=== PATIENT | male | born 1955 | race Caucasian/White ===

== ENCOUNTER 2017-09-05 17:58 | Emergency (ER) | payer MEDICAID ==
[~2017-09-05] VITALS: Ht 180.3 cm; Wt 72.6 kg
[2017-09-05 17:58] VITALS: BP 102/50
[~2017-09-05 17:58] MED LIST: ALAVERT D-12 HO1 T12 PO; AMITRIPTYLINE50 MG PO; ANUSOL-HC25 MG R; ATIVAN PO; AVPAK PRIMIDON250 M1 PO; BACTRIM 400 MG-1 TAB PO; BISACODYL5 MG PO; COGENTIN0.5 MG PO; COGENTIN1 MG PO; CORDROL20 MG PO; DEPAKOTE125 MG PO; DEPAKOTE250 MG PO; DULCOLAX10 M1 RC; DULCOLAX5 M1 PO; EXELON4.6 MG/24 TD; EXELON9.5 MG/24 T; FEROSUL325 MG PO; HYDROCODONE BIT1 T11 PO; HYDROCODONE/ACE1 T14 PO; INVEGA6 MG PO; IRON325 M1 PO; MILK OF MA1200 MG/5 PO; NAMENDA-5 PO; NAMENDA10 MG PO; OLANZAPINE10 MG PO; OXCARBAZEPINE150 MG PO; OXCARBAZEPINE300 M1 PO; PRILOSEC20 M1 PO; PROPRANOLOL HCL10 MG PO; RESTORIL15 MG PO; RESTORIL30 M1 PO; TEGRETOL200 MG PO; TEMAZEPAM30 MG PO; TRILEPTAL300 MG PO; VICODIN 5/500 505 MG PO; [UNRECOGNIZED DRUG - OTHER] R; [UNRECOGNIZED DRUG - REMARK]
[2017-09-05 18:37] LABS: BASO % 0.7 % (0.0-1.0); HEMATOCRIT 43.2 % (42.0-52.0); HEMOGLOBIN 14.3 g/dl (14.0-18.0); LYMPH # 0.8 10*3/uL (1.3-4.4); LYMPH % 13.4 % (27.0-41.0); MEAN CELL VOLUME 94.3 fl (80.0-94.0); MEAN CORPUSCULAR HGB 31.2 pg (27.0-31.0); MEAN CORPUSCULAR HGB CONC 33.1 g/dl (33.0-37.0); MONO # 0.9 10*3/uL (0.1-1.0); MONO % 15.1 % (3.0-9.0); NEUT # 4.1 10*3/uL (2.3-7.9); NEUT % 70.5 % (47.0-73.0); PLATELET COUNT AUTOMATED 144 10*3/uL (130-400); RED BLOOD COUNT 4.58 10*6/uL (4.50-5.90); RED CELL DISTRI WIDTH 14.9 % (0-14.5); WHITE BLOOD COUNT 5.9 10*3/uL (4.8-10.8)
[2017-09-05 18:52] LABS: ALKALINE PHOSPHATASE 70 U/L (45-117); BUN 11 mg/dl (7-24); CHLORIDE 108 mmol/L (98-107); CREATININE 1.36 mg/dL (0.70-1.30); POTASSIUM 3.5 mmol/L (3.5-5.1); SGOT/AST 17 IU/L (3-35); SGPT/ALT 25 U/L (12-78); SODIUM 142 mmol/L (136-145); TOTAL PROTEIN 6.7 gm/dL (6.4-8.2)
[2017-09-05 19:08] LABS: BILIRUBIN NEGATIVE (NEGATIVE); BLOOD 3+ (NEGATIVE); CLARITY SL CLOUDY (CLEAR); COLOR YELLOW (YELLOW); GLUCOSE NEGATIVE (NEGATIVE); KETONE TRACE (NEGATIVE); LEUKO ESTERASE NEGATIVE (NEGATIVE); NITRITE NEGATIVE (NEGATIVE); PH 6.5 (5.0-9.0); UROBILINOGEN 0.2 E.U./dl (0.2-1.0)
[2017-09-05 19:14] LABS: BACTERIA TRACE; MUCOUS 1+; RBC 51-100 rbc/hpf (0-2)
[2017-09-05 19:15] LABS: EPITHELIAL CELLS 0-2
[2017-09-06] MEDS ORDERED: TYLENOL325 M2 PO (12:16)
[2017-09-06] MEDS ORDERED: KLONOPIN0.5 MG PO (12:16)
[2017-09-06] MEDS ORDERED: MIRALAX119 GM PO (12:17)
[2017-09-06] MEDS ORDERED: CONSTULOSE10 GM/151 PO (12:17)
[2017-09-06] MEDS ORDERED: LAMICTAL150 MG PO (12:17)
[2017-09-06] MEDS ORDERED: OLANZAPINE20 M2 PO (12:18)
[2017-09-06] MEDS ORDERED: NORCO 5-325 TA1 EACH PO (12:18)
== END 2017-09-05 19:42 | disposition home or self-care (01) ==
LOC: ED 17:58
PROVIDERS: Nurse Practitioner Family
DX: R56.9 Unspecified convulsions (principal); Z88.0 Allergy status to penicillin; Z88.8 Allergy status to other drugs, medicaments and biological substances; Z88.6 Allergy status to analgesic agent; Z79.899 Other long term (current) drug therapy

== ENCOUNTER 2017-09-06 11:27 | Inpatient (IN) | payer MEDICAID ==
[~2017-09-06] VITALS: Ht 172.7 cm; Wt 71.0 kg
[2017-09-06] VITALS (8 sets, daily range): BP systolic 94–132; BP diastolic 50–87
[2017-09-06 12:06] LABS: BASO % 0.5 % (0.0-1.0); HEMATOCRIT 46.6 % (42.0-52.0); HEMOGLOBIN 15.2 g/dl (14.0-18.0); LYMPH # 0.5 10*3/uL (1.3-4.4); LYMPH % 8.6 % (27.0-41.0); MEAN CELL VOLUME 96.1 fl (80.0-94.0); MEAN CORPUSCULAR HGB 31.3 pg (27.0-31.0); MEAN CORPUSCULAR HGB CONC 32.6 g/dl (33.0-37.0); MEAN PLATELET VOLUME 10.1 fl (9.6-12.3); MONO # 0.8 10*3/uL (0.1-1.0); NEUT # 4.8 10*3/uL (2.3-7.9); NEUT % 77.3 % (47.0-73.0); PLATELET COUNT AUTOMATED 128 10*3/uL (130-400); RED BLOOD COUNT 4.85 10*6/uL (4.50-5.90); WHITE BLOOD COUNT 6.2 10*3/uL (4.8-10.8)
[2017-09-06] MEDS ORDERED: TYLENOL325 M2 PO (12:16)
[2017-09-06] MEDS ORDERED: KLONOPIN0.5 MG PO (12:16)
[2017-09-06] MEDS ORDERED: MIRALAX119 GM PO (12:17)
[2017-09-06] MEDS ORDERED: LAMICTAL150 MG PO (12:17)
[2017-09-06] MEDS ORDERED: CONSTULOSE10 GM/151 PO (12:17)
[2017-09-06] MEDS ORDERED: OLANZAPINE20 M2 PO (12:18)
[2017-09-06] MEDS ORDERED: NORCO 5-325 TA1 EACH PO (12:18)
[2017-09-06 12:22] LABS: ALKALINE PHOSPHATASE 68 U/L (45-117); BUN 13 mg/dl (7-24); CHLORIDE 108 mmol/L (98-107); CREATININE 1.41 mg/dL (0.70-1.30); POTASSIUM 3.5 mmol/L (3.5-5.1); SGOT/AST 33 IU/L (3-35); SGPT/ALT 29 U/L (12-78); SODIUM 142 mmol/L (136-145); TOTAL PROTEIN 7.1 gm/dL (6.4-8.2)
[2017-09-06 13:35] LABS: BILIRUBIN 1+ (NEGATIVE); BLOOD 3+ (NEGATIVE); CLARITY SL CLOUDY (CLEAR); COLOR YELLOW (YELLOW); GLUCOSE NEGATIVE (NEGATIVE); KETONE 1+ (NEGATIVE); LEUKO ESTERASE NEGATIVE (NEGATIVE); NITRITE NEGATIVE (NEGATIVE); UROBILINOGEN 0.2 E.U./dl (0.2-1.0)
[2017-09-06 13:43] LABS: BACTERIA 2+; EPITHELIAL CELLS 0-2; MUCOUS 1+; RBC 21-30 rbc/hpf (0-2)
[2017-09-06 20:31] LABS: PHENOBARBITAL (LUMINAL) < 2.1 ug/ml (15-40); VALPROIC ACID (DEPAKENE) < 3.0 ug/ml (50-100)
[2017-09-07] VITALS: BP 130/78
[2017-09-07 07:23] LABS: BASO % 0.7 % (0.0-1.0); HEMATOCRIT 44.2 % (42.0-52.0); HEMOGLOBIN 14.5 g/dl (14.0-18.0); LYMPH # 1.3 10*3/uL (1.3-4.4); LYMPH % 22.7 % (27.0-41.0); MEAN CORPUSCULAR HGB 32.2 pg (27.0-31.0); MEAN CORPUSCULAR HGB CONC 32.8 g/dl (33.0-37.0); MEAN PLATELET VOLUME 10.7 fl (9.6-12.3); MONO % 18.5 % (3.0-9.0); NEUT # 3.2 10*3/uL (2.3-7.9); NEUT % 57.9 % (47.0-73.0); PLATELET COUNT AUTOMATED 112 10*3/uL (130-400); RED BLOOD COUNT 4.51 10*6/uL (4.50-5.90); RED CELL DISTRI WIDTH 15.2 % (0-14.5); WHITE BLOOD COUNT 5.6 10*3/uL (4.8-10.8)
[2017-09-07 08:00] VITALS: BP 107/61
[2017-09-07 08:03] LABS: ALBUMIN 3.4 gm/dl (3.1-4.5); ALKALINE PHOSPHATASE 52 U/L (45-117); BUN 12 mg/dl (7-24); CHLORIDE 106 mmol/L (98-107); CHOLESTEROL 117 mg/dL (<200); CREATININE 1.12 mg/dL (0.70-1.30); HDL CHOLESTEROL 47 mg/dl (40-60); LDL CHOLESTEROL 54 mg/dL (9-159); PHOSPHOROUS 2.6 mg/dL (2.5-4.9); POTASSIUM 3.8 mmol/L (3.5-5.1); SGOT/AST 37 IU/L (3-35); SGPT/ALT 29 U/L (12-78); SODIUM 143 mmol/L (136-145); TOTAL PROTEIN 6.4 gm/dL (6.4-8.2); TRIGLYCERIDES 78 mg/dl (<150); VLDL CHOLESTEROL 16 mg/dL (6-40)
[2017-09-07 09:59] LABS: VITAMIN D, 25-HYDROXY 9.9 ng/mL (30-100)
[2017-09-07 12:00] VITALS: BP 102/46
[2017-09-07 16:00] VITALS: BP 91/57
[2017-09-07 20:00] VITALS: BP 102/52
[2017-09-08] VITALS: BP 128/54; BP 152/46
[2017-09-08 08:00] VITALS: BP 102/62
[2017-09-08 12:00] VITALS: BP 96/50
[2017-09-08 16:00] VITALS: BP 122/54
[2017-09-08 20:00] VITALS: BP 92/46
[2017-09-09] VITALS: BP 111/55
[2017-09-09 08:00] VITALS: BP 116/50
[2017-09-09] MEDS ORDERED: Vitamin D PO (09:40)
[2017-09-09] MEDS ORDERED: LEVAQUIN750 M1 PO (09:40)
[2017-09-09] MEDS ORDERED: VITAMIN D-32000 UNIT PO (09:40)
[2017-09-09] MEDS ORDERED: TAMIFLU 75MG CA75 MG PO (09:43)
[2017-09-09 12:00] VITALS: BP 104/54
[2017-09-09] MEDS ORDERED: K-TAB20 MEQ PO (21:28)
== END 2017-09-09 16:03 | DRG 871 ==
LOC: ED 11:27 → 4E 14:00 → EDHOLD 14:00 → 4E 14:13
PROVIDERS: Emergency Medicine; Internal Medicine
DX: A41.9 Sepsis, unspecified organism (principal); J11.00 Influenza due to unidentified influenza virus with unspecified type of pneumonia; E44.0 Moderate protein-calorie malnutrition; F03.90 Unspecified dementia, unspecified severity, without behavioral disturbance, psychotic disturbance, mood disturbance, and anxiety; G89.29 Other chronic pain; M54.9 Dorsalgia, unspecified; F32.9 Major depressive disorder, single episode, unspecified; G40.909 Epilepsy, unspecified, not intractable, without status epilepticus; Y95 Nosocomial condition; D50.9 Iron deficiency anemia, unspecified; M85.80 Other specified disorders of bone density and structure, unspecified site; E86.0 Dehydration; D75.89 Other specified diseases of blood and blood-forming organs; E83.51 Hypocalcemia; R82.71 Bacteriuria; Z68.23 Body mass index [BMI] 23.0-23.9, adult; Z88.0 Allergy status to penicillin; Z88.6 Allergy status to analgesic agent; Z88.8 Allergy status to other drugs, medicaments and biological substances; Z79.899 Other long term (current) drug therapy; Z91.81 History of falling; Z87.440 Personal history of urinary (tract) infections; Z82.49 Family history of ischemic heart disease and other diseases of the circulatory system; Z82.0 Family history of epilepsy and other diseases of the nervous system

== ENCOUNTER 2017-09-09 18:02 | Emergency (ER) | payer MEDICAID ==
[~2017-09-09] VITALS: Ht 172.7 cm; Wt 81.6 kg
[~2017-09-09 18:02] MED LIST changes: +CONSTULOSE10 GM/151 PO; +KLONOPIN0.5 MG PO; +LAMICTAL150 MG PO; +LEVAQUIN750 M1 PO; +MIRALAX119 GM PO; +NORCO 5-325 TA1 EACH PO; +OLANZAPINE20 M2 PO; +TAMIFLU 75MG CA75 MG PO; +TYLENOL325 M2 PO; +VITAMIN D-32000 UNIT PO; +Vitamin D PO
[2017-09-09 18:47] LABS: BASO % 0.6 % (0.0-1.0); HEMATOCRIT 41.4 % (42.0-52.0); HEMOGLOBIN 13.7 g/dl (14.0-18.0); LYMPH # 1.2 10*3/uL (1.3-4.4); LYMPH % 36.4 % (27.0-41.0); MEAN CELL VOLUME 94.5 fl (80.0-94.0); MEAN CORPUSCULAR HGB 31.3 pg (27.0-31.0); MEAN CORPUSCULAR HGB CONC 33.1 g/dl (33.0-37.0); MEAN PLATELET VOLUME 10.3 fl (9.6-12.3); MONO # 0.5 10*3/uL (0.1-1.0); MONO % 14.1 % (3.0-9.0); NEUT # 1.6 10*3/uL (2.3-7.9); NEUT % 48.6 % (47.0-73.0); PLATELET COUNT AUTOMATED 133 10*3/uL (130-400); RED BLOOD COUNT 4.38 10*6/uL (4.50-5.90); RED CELL DISTRI WIDTH 15.1 % (0-14.5); WHITE BLOOD COUNT 3.2 10*3/uL (4.8-10.8)
[2017-09-09 19:02] LABS: ALBUMIN 3.8 gm/dl (3.1-4.5); ALKALINE PHOSPHATASE 61 U/L (45-117); BUN 7 mg/dl (7-24); CHLORIDE 108 mmol/L (98-107); CREATININE 0.99 mg/dL (0.70-1.30); POTASSIUM 2.9 mmol/L (3.5-5.1); SGOT/AST 37 IU/L (3-35); SGPT/ALT 33 U/L (12-78); SODIUM 145 mmol/L (136-145); TOTAL PROTEIN 7.1 gm/dL (6.4-8.2)
[2017-09-09] MEDS ORDERED: K-TAB20 MEQ PO (21:28)
[2017-09-09 22:36] VITALS: BP 95/58
== END 2017-09-09 21:49 | disposition other institution (70) ==
LOC: ED 18:02
PROVIDERS: Physician Assistant
DX: S50.12XA Contusion of left forearm, initial encounter (principal); E87.6 Hypokalemia; Z79.899 Other long term (current) drug therapy; Z88.8 Allergy status to other drugs, medicaments and biological substances; Z88.0 Allergy status to penicillin; Z88.5 Allergy status to narcotic agent; Z88.4 Allergy status to anesthetic agent; W19.XXXA Unspecified fall, initial encounter; Y93.89 Activity, other specified; Y92.89 Other specified places as the place of occurrence of the external cause; Y99.9 Unspecified external cause status

== ENCOUNTER 2017-09-23 12:11 | Emergency (ER) | payer MEDICAID ==
[~2017-09-23] VITALS: Ht 177.8 cm; Wt 72.6 kg
[2017-09-23 12:11] VITALS: BP 105/67
[~2017-09-23 12:11] MED LIST changes: +K-TAB20 MEQ PO
== END 2017-09-23 15:09 | disposition home or self-care (01) ==
LOC: ED 12:11
DX: S00.83XA Contusion of other part of head, initial encounter (principal); G89.29 Other chronic pain; F03.90 Unspecified dementia, unspecified severity, without behavioral disturbance, psychotic disturbance, mood disturbance, and anxiety; Z79.899 Other long term (current) drug therapy; Z88.5 Allergy status to narcotic agent; Z88.0 Allergy status to penicillin; Z88.6 Allergy status to analgesic agent; Z88.8 Allergy status to other drugs, medicaments and biological substances; W19.XXXA Unspecified fall, initial encounter; Y93.89 Activity, other specified; Y92.89 Other specified places as the place of occurrence of the external cause; Y99.9 Unspecified external cause status

== ENCOUNTER → 2017-11-08 | Outpatient (CLI) | payer MEDICAID ==
--- NOTE | ~2017-11-08 | EEG ---
[place], [place] ELECTROENCEPHALOGRAM REPORT NAME: [id number] UNIT #: [id number] ROOM: DOCTOR: RACHNA NATHAN JR,EDGARDO DOS: 11/08/2017 This 62-year-old man on benztropine, Klonopin, Lamictal, [place], olanzapine, and calcium, displayed the following underlying rhythm - - - slightly disorganized, slightly asynchronous, 8 Hz, 40 microvolt alpha rhythms in both posterior regions. 18 Hz, 10 microvolt beta rhythms were noted briefly in both precentral regions. There was no checking reactivity to eye opening and eye closing. Photic stimulation was not performed. There was poor with no significant changes in the above underlying rhythms. However, throughout this recording, there appeared at first isolated sharp and slow wave discharges of 30 microvolts occurring with phase reversals at the C3 electrode and occurring every 5-10 seconds. Subsequently, the patient developed polyspike and slow wave discharges of 30-40 microvolts in amplitude at a frequency of 6 per second, lasting over 1 minute. These were more diffuse and were not reportedly associated with clinical seizure accompaniments. A second long run lasting approximately 1 minute then occurred with a central location to the polyspike and slow wave discharges. Throughout this recording, there were no focal abnormalities or other epileptiform activities present. IMPRESSION - - - abnormal awake EEG with seizure activity emanating from the C3 electrode as well as more generalized central seizure discharges as well. COMMENTS: The above abnormal EEG consistent with a seizure disorder - - - with focal seizure activity from the left central areas and then generalized activity as well. Clinical correlation was highly advised. EDGARDO BRISCOE MD CM:EEG:ELECTROENCEPHALOGRAM REPORT [id number] EDGARDO BRISCOE MD, JR
== END | disposition home or self-care (01) ==
LOC: CP 09:53
DX: G40.919 Epilepsy, unspecified, intractable, without status epilepticus (principal)

== ENCOUNTER → 2023-09-16 | Outpatient (CLI) | payer MEDICAID ==
[~2023-09-16] MED LIST changes: +AMBIEN5 MG PO; +BENZTROPINE MESY2 MG PO; +BISACODYL10 MG R; +CELEXA10 MG PO; +NEURONTIN300 MG PO; +ZYPREXA2.5 MG PO
== END | disposition home or self-care (01) ==
LOC: ORTHO 00:36
PROVIDERS: ATTEND Orthopaedic Surgery
DX: M25.511 Pain in right shoulder (principal)

== ENCOUNTER 2024-04-26 17:56 | Emergency (ER) | payer MEDICAID ==
[~2024-04-26] VITALS: Wt 67.1 kg
[2024-04-26 18:14] VITALS: BP 107/56
[2024-04-26] MEDS ORDERED: Tdap Vaccine 0.5 ML SYR (Adult Vaccine) IM ONE (19:20)
[2024-04-29] MEDS ORDERED: RISPERIDONE0.5 MG PO (09:10)
[2024-04-29] MEDS ORDERED: DULOXETINE HCL60 MG PO (09:11)
[2024-04-29] MEDS ORDERED: CITALOPRAM20 MG PO (09:12)
[2024-04-29] MEDS ORDERED: Mysoline50 MG PO (09:12)
[2024-04-29] MEDS ORDERED: QUETIAPINE FUM100 M3 PO (09:13)
[2024-04-29] MEDS ORDERED: OMEPRAZOLE MAGN20 MG PO (09:13)
[2024-04-29] MEDS ORDERED: VITAMIN E 400 UNIT (09:14)
== END 2024-04-26 22:00 ==
LOC: ED 17:56
DX: S00.81XA Abrasion of other part of head, initial encounter (principal); S09.8XXA Other specified injuries of head, initial encounter; I10 Essential (primary) hypertension; F41.9 Anxiety disorder, unspecified; F03.90 Unspecified dementia, unspecified severity, without behavioral disturbance, psychotic disturbance, mood disturbance, and anxiety; Z88.0 Allergy status to penicillin; Z88.5 Allergy status to narcotic agent; Z88.8 Allergy status to other drugs, medicaments and biological substances; Z98.890 Other specified postprocedural states; W05.0XXA Fall from non-moving wheelchair, initial encounter; Y93.89 Activity, other specified; Y92.89 Other specified places as the place of occurrence of the external cause; Y99.8 Other external cause status

== ENCOUNTER 2024-04-27 17:18 | Emergency (ER) | payer MEDICAID ==
[~2024-04-27] VITALS: Ht 182.8 cm; Wt 63.2 kg
[2024-04-27 17:22] VITALS: BP 122/67
[2024-04-27] MEDS ORDERED: Ondansetron Hydrochloride 4 MG/2 ML VIAL IV ONE (17:25)
[2024-04-27] MEDS ORDERED: MORPHINE Sulfate 2 MG/ML SYR IV ONE (17:25)
[2024-04-27] MEDS ORDERED: SODIUM CHLORIDE 0.9% 1,000 ML IV ONE ×3 (17:25→18:20)
[2024-04-27 17:43] LABS: BASO # 0.1 10*3/uL (0.0-0.1); BASO % 1.6 % (0.0-1.0); EOS # 0.3 10*3/uL (0.0-0.4); EOS % 5.1 % (1.0-4.0); HEMATOCRIT 46.4 % (42.0-52.0); LYMPH # 1.6 10*3/uL (1.3-4.4); MEAN CELL VOLUME 94.9 fl (80.0-94.0); MEAN CORPUSCULAR HGB 31.1 pg (27.0-31.0); MEAN CORPUSCULAR HGB CONC 32.8 g/dl (33.0-37.0); MEAN PLATELET VOLUME 9.9 fl (9.6-12.3); MONO # 0.7 10*3/uL (0.1-1.0); MONO % 11.8 % (3.0-9.0); NEUT # 3.3 10*3/uL (2.3-7.9); PLATELET COUNT AUTOMATED 171 10*3/uL (130-400); RED BLOOD COUNT 4.89 10*6/uL (4.50-5.90); RED CELL DISTRI WIDTH 14.2 % (0-14.5); WHITE BLOOD COUNT 6.1 10*3/uL (4.8-10.8)
[2024-04-27 18:00] LABS: BUN 7 mg/dl (9-23); CHLORIDE 106 mmol/L (98-107); CPK 1072 U/L (34-171); POTASSIUM 4.1 mmol/L (3.4-5.1)
[2024-04-29] MEDS ORDERED: RISPERIDONE0.5 MG PO (09:10)
[2024-04-29] MEDS ORDERED: DULOXETINE HCL60 MG PO (09:11)
[2024-04-29] MEDS ORDERED: CITALOPRAM20 MG PO (09:12)
[2024-04-29] MEDS ORDERED: Mysoline50 MG PO (09:12)
[2024-04-29] MEDS ORDERED: OMEPRAZOLE MAGN20 MG PO (09:13)
[2024-04-29] MEDS ORDERED: QUETIAPINE FUM100 M3 PO (09:13)
[2024-04-29] MEDS ORDERED: VITAMIN E 400 UNIT (09:14)
== END 2024-04-27 18:39 | disposition home or self-care (01) ==
LOC: ED 17:18
PROVIDERS: Emergency Medicine
DX: M25.511 Pain in right shoulder (principal); F32.A Depression, unspecified; D64.9 Anemia, unspecified; I10 Essential (primary) hypertension; F03.90 Unspecified dementia, unspecified severity, without behavioral disturbance, psychotic disturbance, mood disturbance, and anxiety; F41.9 Anxiety disorder, unspecified; Z88.0 Allergy status to penicillin; Z88.5 Allergy status to narcotic agent; Z88.8 Allergy status to other drugs, medicaments and biological substances; Z98.890 Other specified postprocedural states; W19.XXXA Unspecified fall, initial encounter

== ENCOUNTER 2024-04-28 12:15 | Emergency (ER) | payer MEDICAID ==
[2024-04-28 12:55] LABS: BASO # 0.1 10*3/uL (0.0-0.1); EOS # 0.1 10*3/uL (0.0-0.4); EOS % 1.6 % (1.0-4.0); HEMATOCRIT 48.8 % (42.0-52.0); LYMPH # 0.8 10*3/uL (1.3-4.4); LYMPH % 10.8 % (27.0-41.0); MEAN CELL VOLUME 96.6 fl (80.0-94.0); MEAN CORPUSCULAR HGB 30.9 pg (27.0-31.0); MEAN PLATELET VOLUME 10.1 fl (9.6-12.3); MONO # 0.5 10*3/uL (0.1-1.0); MONO % 6.5 % (3.0-9.0); NEUT # 6.1 10*3/uL (2.3-7.9); NEUT % 79.7 % (47.0-73.0); PLATELET COUNT AUTOMATED 161 10*3/uL (130-400); RED BLOOD COUNT 5.05 10*6/uL (4.50-5.90); RED CELL DISTRI WIDTH 14.3 % (0-14.5); WHITE BLOOD COUNT 7.7 10*3/uL (4.8-10.8)
[2024-04-28 13:16] LABS: BUN 6 mg/dl (9-23); CHLORIDE 109 mmol/L (98-107)
[2024-04-28 17:52] VITALS: BP 129/46
[2024-04-29] MEDS ORDERED: RISPERIDONE0.5 MG PO (09:10)
[2024-04-29] MEDS ORDERED: DULOXETINE HCL60 MG PO (09:11)
[2024-04-29] MEDS ORDERED: CITALOPRAM20 MG PO (09:12)
[2024-04-29] MEDS ORDERED: Mysoline50 MG PO (09:12)
[2024-04-29] MEDS ORDERED: QUETIAPINE FUM100 M3 PO (09:13)
[2024-04-29] MEDS ORDERED: OMEPRAZOLE MAGN20 MG PO (09:13)
[2024-04-29] MEDS ORDERED: VITAMIN E 400 UNIT (09:14)
== END 2024-04-28 17:53 | disposition home or self-care (01) ==
LOC: ED 12:15
PROVIDERS: Emergency Medicine
DX: S09.8XXA Other specified injuries of head, initial encounter (principal); F32.A Depression, unspecified; I10 Essential (primary) hypertension; E78.5 Hyperlipidemia, unspecified; F03.90 Unspecified dementia, unspecified severity, without behavioral disturbance, psychotic disturbance, mood disturbance, and anxiety; D64.9 Anemia, unspecified; F41.9 Anxiety disorder, unspecified; Z88.0 Allergy status to penicillin; Z88.5 Allergy status to narcotic agent; Z88.8 Allergy status to other drugs, medicaments and biological substances; Z98.890 Other specified postprocedural states; W19.XXXA Unspecified fall, initial encounter; Y93.89 Activity, other specified; Y92.89 Other specified places as the place of occurrence of the external cause; Y99.8 Other external cause status

== ENCOUNTER 2024-05-03 10:14 | Inpatient (IN) | payer MEDICAID ==
[~2024-05-03] VITALS: Ht 177.8 cm; Wt 57.8 kg
[~2024-05-03 10:14] MED LIST changes: +CITALOPRAM20 MG PO; +DULOXETINE HCL60 MG PO; +Mysoline50 MG PO; +OMEPRAZOLE MAGN20 MG PO; +QUETIAPINE FUM100 M3 PO; +RISPERIDONE0.5 MG PO; +VITAMIN E 400 UNIT
[2024-05-03] MEDS ORDERED: Ziprasidone Mesylate 20 MG VIAL IM PRN (14:35)
[2024-05-03] MEDS ORDERED: LORazepam 2 MG/ML VIAL IM PRN (14:35)
[2024-05-03] MEDS ORDERED: LORazepam 1 MG TAB PO PRN (14:35)
[2024-05-03 14:43] VITALS: BP 144/55
[2024-05-03] MEDS ORDERED: MG-AL HYDROXIDE/SIMETICONE 30 ML UDC PO PRN (15:40)
[2024-05-03] MEDS ORDERED: ACETAMINOPHEN 325 MG TAB PO PRN (15:40)
[2024-05-03] MEDS ORDERED: Magnesium Hydroxide 30 ML UDC PO PRN (15:40)
[2024-05-03] MEDS ORDERED: LAMOTRIGINE 100 MG TAB PO SCH (21:00)
[2024-05-03] MEDS ORDERED: Polyethylene Glycol 3350 17 GM PACKET PO SCH (21:00)
[2024-05-03] MEDS ORDERED: RISPERIDONE 2 MG TAB PO SCH (21:00)
[2024-05-03] MEDS ORDERED: GABAPENTIN 300 MG CAP PO SCH (21:00)
[2024-05-03] MEDS ORDERED: POTASSIUM CHLORIDE 20 MEQ TAB PO SCH (21:00)
[2024-05-03] MEDS ORDERED: PRIMIDONE 50 MG TAB PO SCH (21:00)
[2024-05-04 06:21] LABS: BASO # 0.1 10*3/uL (0.0-0.1); BASO % 1.7 % (0.0-1.0); EOS # 0.1 10*3/uL (0.0-0.4); EOS % 1.3 % (1.0-4.0); LYMPH # 1.3 10*3/uL (1.3-4.4); LYMPH % 17.2 % (27.0-41.0); MEAN CELL VOLUME 92.9 fl (80.0-94.0); MEAN CORPUSCULAR HGB 31.5 pg (27.0-31.0); MEAN CORPUSCULAR HGB CONC 33.9 g/dl (33.0-37.0); MEAN PLATELET VOLUME 9.8 fl (9.6-12.3); MONO # 0.7 10*3/uL (0.1-1.0); MONO % 8.5 % (3.0-9.0); NEUT # 5.6 10*3/uL (2.3-7.9); PLATELET COUNT AUTOMATED 260 10*3/uL (130-400); RED BLOOD COUNT 4.95 10*6/uL (4.50-5.90); RED CELL DISTRI WIDTH 14.7 % (0-14.5); WHITE BLOOD COUNT 7.8 10*3/uL (4.8-10.8)
[2024-05-04 06:58] LABS: ALKALINE PHOSPHATASE 93 U/L (46-116); BUN 11 mg/dl (9-23); CHLORIDE 109 mmol/L (98-107); CHOLESTEROL 194 mg/dL (<200); LDL CHOLESTEROL 120 mg/dL (9-159); POTASSIUM 3.7 mmol/L (3.4-5.1); SGPT/ALT 23 U/L (5-49); TOTAL PROTEIN 7.9 gm/dL (6.0-8.0); TRIGLYCERIDES 91 mg/dl (<150)
[2024-05-04 07:39] LABS: VITAMIN D, 25-HYDROXY 56.4 ng/mL (30-100)
[2024-05-04 08:00] VITALS: BP 112/77
[2024-05-04] MEDS ORDERED: VITAMIN E 400 IU CAP PO SCH (09:00)
[2024-05-04] MEDS ORDERED: clonAZEPAM 0.5 MG TAB PO SCH (09:00)
[2024-05-04] MEDS ORDERED: RISPERIDONE 1 MG ODT BC SCH (09:00)
[2024-05-04] MEDS ORDERED: OMEPRAZOLE 20 MG CAP PO SCH (09:00)
[2024-05-04] MEDS ORDERED: Cholecalciferol 2,000 UNIT TABLET (50 MCG) PO SCH (09:00)
[2024-05-04] MEDS ORDERED: Rivastigmine Tartrate 4.6 MG/24 HR PATCH T SCH (09:00)
[2024-05-04] MEDS ORDERED: Duloxetine Hydrochloride 60 MG CAP PO SCH (09:00)
[2024-05-04 13:16] LABS: BILIRUBIN Negative (Negative); BLOOD Negative (Negative); CLARITY Clear (Clear); COLOR Yellow (Yellow); GLUCOSE Negative (Negative); KETONE 4+ (Negative); LEUKO ESTERASE Negative (Negative); NITRITE Negative (Negative); PH 5.5 (4.5-8.0)
[2024-05-04 13:27] LABS: RBC 0-2 rbc/hpf (0-2)
[2024-05-04] MEDS ORDERED: SODIUM CHLORIDE 0.9% 1,000 ML BAG IV SCH (14:15)
[2024-05-04] MEDS ORDERED: SODIUM CHLORIDE 0.9% 1,000 ML BAG IV ONE (14:20)
[2024-05-04 14:27] LABS: BASO # 0.1 10*3/uL (0.0-0.1); BASO % 1.6 % (0.0-1.0); EOS # 0.1 10*3/uL (0.0-0.4); HEMATOCRIT 47.2 % (42.0-52.0); LYMPH # 1.3 10*3/uL (1.3-4.4); LYMPH % 15.2 % (27.0-41.0); MEAN CORPUSCULAR HGB 30.9 pg (27.0-31.0); MEAN CORPUSCULAR HGB CONC 32.8 g/dl (33.0-37.0); MEAN PLATELET VOLUME 9.8 fl (9.6-12.3); MONO # 0.7 10*3/uL (0.1-1.0); MONO % 8.2 % (3.0-9.0); NEUT # 6.1 10*3/uL (2.3-7.9); NEUT % 73.6 % (47.0-73.0); PLATELET COUNT AUTOMATED 262 10*3/uL (130-400); RED BLOOD COUNT 5.02 10*6/uL (4.50-5.90); RED CELL DISTRI WIDTH 14.6 % (0-14.5); WHITE BLOOD COUNT 8.3 10*3/uL (4.8-10.8)
[2024-05-04 14:49] LABS: ALKALINE PHOSPHATASE 97 U/L (46-116); BUN 11 mg/dl (9-23); CHLORIDE 110 mmol/L (98-107); POTASSIUM 3.5 mmol/L (3.4-5.1); SGPT/ALT 20 U/L (5-49); TOTAL PROTEIN 8.2 gm/dL (6.0-8.0)
[2024-05-04 20:00] VITALS: BP 172/85
[2024-05-04] MEDS ORDERED: amLODIPine besylate 10 MG TAB PO ONE ×2 (20:40→22:30)
[2024-05-04] MEDS ORDERED: SODIUM CHLORIDE 0.9% 1,000 ML IV SCH (21:00)
[2024-05-05 08:00] VITALS: BP 135/55
[2024-05-05 08:49] LABS: BUN 13 mg/dl (9-23); CHLORIDE 114 mmol/L (98-107); POTASSIUM 4.1 mmol/L (3.4-5.1)
[2024-05-05 20:00] VITALS: BP 123/59
[2024-05-05] MEDS ORDERED: SODIUM CHLORIDE 0.45% 1,000 ML IV ONE (22:00)
[2024-05-06 07:25] LABS: BASO # 0.1 10*3/uL (0.0-0.1); BASO % 2.1 % (0.0-1.0); EOS # 0.6 10*3/uL (0.0-0.4); EOS % 9.3 % (1.0-4.0); LYMPH % 31.3 % (27.0-41.0); MEAN CELL VOLUME 91.3 fl (80.0-94.0); MEAN CORPUSCULAR HGB 31.2 pg (27.0-31.0); MEAN CORPUSCULAR HGB CONC 34.1 g/dl (33.0-37.0); MONO # 0.7 10*3/uL (0.1-1.0); MONO % 10.7 % (3.0-9.0); NEUT # 2.9 10*3/uL (2.3-7.9); PLATELET COUNT AUTOMATED 236 10*3/uL (130-400); RED BLOOD COUNT 4.49 10*6/uL (4.50-5.90); RED CELL DISTRI WIDTH 14.8 % (0-14.5); WHITE BLOOD COUNT 6.3 10*3/uL (4.8-10.8)
[2024-05-06 08:00] VITALS: BP 110/74
[2024-05-06 08:05] LABS: ALKALINE PHOSPHATASE 82 U/L (46-116); BUN 7 mg/dl (9-23); CHLORIDE 109 mmol/L (98-107); SGPT/ALT 23 U/L (5-49)
[2024-05-06 08:07] LABS: POTASSIUM 2.9 mmol/L (3.4-5.1)
[2024-05-06] MEDS ORDERED: POTASSIUM CHLORIDE 20 MEQ TAB PO ONE ×2 (08:30→15:30)
[2024-05-06 20:00] VITALS: BP 132/67
[2024-05-07 07:42] LABS: BUN 6 mg/dl (9-23); CHLORIDE 110 mmol/L (98-107); POTASSIUM 3.2 mmol/L (3.4-5.1)
[2024-05-07 08:00] VITALS: BP 127/58
[2024-05-07 08:31] VITALS: BP 127/58
[2024-05-07] MEDS ORDERED: Rivastigmine Tartrate 9.5 MG/24 HR PATCH T SCH (09:00)
[2024-05-07] MEDS ORDERED: CITALOPRAM 20 MG TAB PO SCH (09:00)
[2024-05-07] MEDS ORDERED: SODIUM CHLORIDE 0.9% 10 ML VIAL IV ONE (17:35)
[2024-05-07 20:00] VITALS: BP 153/70
[2024-05-07] MEDS ORDERED: Paliperidone 3 MG TER PO SCH (21:00)
[2024-05-08 07:17] LABS: BUN 5 mg/dl (9-23); CHLORIDE 107 mmol/L (98-107)
[2024-05-08 07:39] LABS: POTASSIUM 4.5 mmol/L (3.4-5.1)
[2024-05-08 08:00] VITALS: BP 149/63
[2024-05-08] MEDS ORDERED: RIVASTIGMINE 13.3 MG/24 HR TDM T SCH (09:00)
[2024-05-08 20:00] VITALS: BP 155/76
[2024-05-08] MEDS ORDERED: Mirtazapine 15 MG TAB PO SCH (21:00)
[2024-05-09 06:58] LABS: BASO # 0.1 10*3/uL (0.0-0.1); BASO % 1.3 % (0.0-1.0); EOS # 0.3 10*3/uL (0.0-0.4); EOS % 3.5 % (1.0-4.0); HEMATOCRIT 45.5 % (42.0-52.0); LYMPH # 1.7 10*3/uL (1.3-4.4); LYMPH % 22.6 % (27.0-41.0); MEAN CELL VOLUME 93.4 fl (80.0-94.0); MEAN CORPUSCULAR HGB 30.8 pg (27.0-31.0); MONO # 0.7 10*3/uL (0.1-1.0); MONO % 9.5 % (3.0-9.0); NEUT # 4.7 10*3/uL (2.3-7.9); NEUT % 62.6 % (47.0-73.0); PLATELET COUNT AUTOMATED 249 10*3/uL (130-400); RED BLOOD COUNT 4.87 10*6/uL (4.50-5.90); RED CELL DISTRI WIDTH 14.6 % (0-14.5); WHITE BLOOD COUNT 7.5 10*3/uL (4.8-10.8)
[2024-05-09 07:24] LABS: ALKALINE PHOSPHATASE 95 U/L (46-116); BUN 7 mg/dl (9-23); CHLORIDE 102 mmol/L (98-107); SGPT/ALT 19 U/L (5-49); TOTAL PROTEIN 6.3 gm/dL (6.0-8.0)
[2024-05-09 07:36] LABS: POTASSIUM 3.3 mmol/L (3.4-5.1)
[2024-05-09 08:00] VITALS: BP 159/74
[2024-05-09 20:00] VITALS: BP 153/74
[2024-05-09] MEDS ORDERED: Paliperidone 6 MG TER PO SCH (21:00)
[2024-05-10 07:34] VITALS: BP 161/72
[2024-05-10 07:44] LABS: ALKALINE PHOSPHATASE 120 U/L (46-116); BUN 7 mg/dl (9-23); CHLORIDE 102 mmol/L (98-107); POTASSIUM 3.5 mmol/L (3.4-5.1); SGPT/ALT 19 U/L (5-49); TOTAL PROTEIN 7.9 gm/dL (6.0-8.0)
[2024-05-10] MEDS ORDERED: Cyproheptadine Hydrochloride 4 MG TAB PO SCH (13:00)
[2024-05-10 20:00] VITALS: BP 137/82
[2024-05-10] MEDS ORDERED: RAMELTEON 8 MG TAB PO SCH (21:00)
[2024-05-11 07:59] VITALS: BP 108/59
[2024-05-11 20:00] VITALS: BP 107/49
[2024-05-12 07:50] VITALS: BP 106/63
[2024-05-12] MEDS ORDERED: Memantine Hydrochloride 5 MG TAB PO SCH (09:00)
[2024-05-12 19:44] VITALS: BP 108/51
[2024-05-13 07:49] VITALS: BP 115/58
[2024-05-13 20:00] VITALS: BP 118/63
[2024-05-13] MEDS ORDERED: Memantine Hydrochloride 5 MG TAB PO SCH (21:00)
[2024-05-14 06:56] LABS: BASO # 0.1 10*3/uL (0.0-0.1); BASO % 0.9 % (0.0-1.0); EOS # 0.1 10*3/uL (0.0-0.4); EOS % 1.1 % (1.0-4.0); HEMATOCRIT 37.5 % (42.0-52.0); LYMPH # 0.4 10*3/uL (1.3-4.4); LYMPH % 4.7 % (27.0-41.0); MEAN CELL VOLUME 90.8 fl (80.0-94.0); MEAN CORPUSCULAR HGB 31.5 pg (27.0-31.0); MEAN CORPUSCULAR HGB CONC 34.7 g/dl (33.0-37.0); MEAN PLATELET VOLUME 10.1 fl (9.6-12.3); MONO # 0.5 10*3/uL (0.1-1.0); MONO % 6.4 % (3.0-9.0); NEUT # 6.9 10*3/uL (2.3-7.9); NEUT % 86.4 % (47.0-73.0); PLATELET COUNT AUTOMATED 193 10*3/uL (130-400); RED BLOOD COUNT 4.13 10*6/uL (4.50-5.90); RED CELL DISTRI WIDTH 15.5 % (0-14.5)
[2024-05-14 07:21] LABS: ALKALINE PHOSPHATASE 92 U/L (46-116); BUN 6 mg/dl (9-23); CHLORIDE 111 mmol/L (98-107); POTASSIUM 3.7 mmol/L (3.4-5.1); SGPT/ALT 11 U/L (5-49); TOTAL PROTEIN 5.7 gm/dL (6.0-8.0)
[2024-05-14] MEDS ORDERED: SODIUM CHLORIDE 0.9% 10 ML VIAL IV ONE (08:15)
[2024-05-14] MEDS ORDERED: SODIUM CHLORIDE 0.9% 1,000 ML IV ONE (08:20)
[2024-05-14] MEDS ORDERED: Piperacillin Sodium/Tazobact 50 ML IV ONE (08:25)
[2024-05-14] MEDS ORDERED: NAMENDA-5 PO (08:30)
[2024-05-14] MEDS ORDERED: EXELON1 EAC2 TD (08:30)
[2024-05-14] MEDS ORDERED: INVEGA6 MG PO (08:31)
[2024-05-14] MEDS ORDERED: REMERON15 M2 PO (08:31)
[2024-05-14] MEDS ORDERED: Vancomycin Hydrochloride 1,000 MG in SODIUM CHLORIDE 0.9% 250 ML IV ONE (09:00)
== END 2024-05-14 08:45 | disposition short-term general hospital (02) | DRG 750 ==
LOC: 3N 10:14
PROVIDERS: Counselor Professional; Internal Medicine; ADMIT Psychiatry & Neurology Psychiatry; ATTEND Psychiatry & Neurology Psychiatry
PROC: GZHZZZZ Group Psychotherapy (ICD-10-PCS; principal; 2024-05-08)
PROC: GZ56ZZZ Individual Psychotherapy, Supportive (ICD-10-PCS; 2024-05-08)
DX: F25.9 Schizoaffective disorder, unspecified (principal); G93.41 Metabolic encephalopathy; G40.909 Epilepsy, unspecified, not intractable, without status epilepticus; E87.0 Hyperosmolality and hypernatremia; E86.0 Dehydration; F23 Brief psychotic disorder; E87.8 Other disorders of electrolyte and fluid balance, not elsewhere classified; E87.6 Hypokalemia; M85.88 Other specified disorders of bone density and structure, other site; F03.911 Unspecified dementia, unspecified severity, with agitation; R62.7 Adult failure to thrive; R45.851 Suicidal ideations; S60.512A Abrasion of left hand, initial encounter; S00.81XA Abrasion of other part of head, initial encounter; F43.20 Adjustment disorder, unspecified; Z88.0 Allergy status to penicillin; Z88.8 Allergy status to other drugs, medicaments and biological substances; Z91.09 Other allergy status, other than to drugs and biological substances; Z82.0 Family history of epilepsy and other diseases of the nervous system; X58.XXXA Exposure to other specified factors, initial encounter; Y93.89 Activity, other specified; Y92.89 Other specified places as the place of occurrence of the external cause; Y99.8 Other external cause status